=== PATIENT | female | born 1995 | race Caucasian/White ===

== ENCOUNTER → 2020-11-28 02:33 | Outpatient (CLI) | payer OTHER, SELFPAY ==
[2020-11-28 19:44] LABS: SARS-CoV-2 RNA PCR Negative
== END ==
PROVIDERS: PCP Family Medicine; Visit Provider Internal Medicine Critical Care Medicine
DX: Z01.812 Encounter for preprocedural laboratory examination (principal); Z20.822 Contact with and (suspected) exposure to COVID-19
CPT/HCPCS: C9803; U0003; U0005

== ENCOUNTER 2020-12-01 09:04 | Outpatient (CLI) | payer OTHER, SELFPAY ==
--- NOTE | 2020-12-16 18:14 | WPDSLEEPSTUD ---
Sleep Study Date of Study: 12/01/20 Ordering Provider: Lisa Russell MD Interpreting Physician: Lisa Russell MD Sleep Study Type: Polysomnogram Height: 1.6 m Weight: 59.8 kg Body Mass Index: 23.3 Neck Circumference (inches): 14 [place]: 18 Reason for Sleep Study Hypersomnolence Sleep History Dorys Walter is a 25 years old female who has had problems with sleep since 2013 while in college. She has increased difficulty falling asleep and staying asleep. She wakes up feeling exhausted as if she never slept. This is extremely severe. She has a difficult time falling asleep, she wakes up throughout the night and has excessive daytime sleepiness. She does not awaken from sleep feeling short of breath. She rarely awakens at night with heartburn, belching or coughing. She frequently snores michel often wakes with a dry mouth. Her snoring is never loud enough that others complain about it. She constantly has trouble sleeping with a cold. She does not wake up gasping for breath at night. She rarely has breathing problems at night observed by others. She constantly sweats excessively at night. She rarely notices her heart pounding or beating irregularly at night. She constantly falls asleep during the day, constantly involuntarily and constantly while driving. She rarely falls asleep while exerting physical effort. She does not have loss of muscle tone was strong emotion. She constantly has daytime difficulties due to her excessive sleepiness. She does not feel paralyzed on waking or falling asleep. She constantly has vivid dreamlike scenes upon awakening or falling asleep. She constantly is afraid to go to sleep. She constantly has nightmares, she could she always remembers her dreams. She constantly has racing thoughts, feelings of sadness, depression and anxiety. She rarely has muscular tension. She occasionally notices parts of her body jerking and she occasionally kicks at night. She does not have crawling or aching feelings in her legs. She occasionally has leg pain at night. She does not have morning jaw pain. She constantly grinds her teeth during sleep. She frequently has bothered by pain during the day and is awakened by pain at night. She constantly wakes up feeling stiff in the morning with sore or achy muscles and pain in the neck and spine. She has fatigue, memory problems, bowel disturbances headaches and sexual problems. SHe has back pain due to scoliosis, and this impacts her sleep quality. she has seasonal allergies, gastroesophageal reflux disease and takes Tums often. She had a negative home sleep test. She reports that she was awake for much of the test. Normal bedtime is 9-10 p.m. taking 1 or 2 hours to fall asleep typically waking 3 or 4 times at night. When she wakes during the night she stays awake for 1-2 hours. She will stretch, go get water, go to the bathroom and then a lie in bed trying to return to sleep. She wakes the morning at 6:00 a.m.. On the weekends, she goes to bed between 9:00 p.m. and 10:30 p.m. and wakes between 7 and 8:00 a.m.. She denies taking naps in the afternoon or evening. A short nap is not refreshing. She is usually drowsy in the morning for 3 hours or longer. Habits: Never smoked tobacco. No caffeine, alcohol or recreational drugs. [facility] Past Medical History Medical History (Updated 12/16/20 @ 18:20 by Lisa Russell MD) Allergic rhinitis Anxiety Depression H/O scoliosis Lumbar radiculopathy Migraine Mixed irritable bowel syndrome (08/25/17) Surgical History Surgical History History of repair of ACL Family History Family History Mother Patient's mother is in good health Father Patient's father is in good health Sibling Patient's sister is in good health Other Diabetes mellitus Family history of alcoholism Family history of cardiovascular
[2020-12-16 18:26] VITALS: BMI 23.3
== END 2020-12-01 09:05 | disposition home or self-care (01) ==
LOC: ANHCSM 09:05
PROVIDERS: PCP Family Medicine; Visit Provider Internal Medicine Critical Care Medicine
DX: G47.10 Hypersomnia, unspecified (principal)
CPT/HCPCS: 95810

== ENCOUNTER 2022-04-12 12:12 | Day surgery (SDC) | payer OTHER, SELFPAY ==
[2022-02-28 08:12] VITALS: BMI 23.9
[2022-03-30 12:31] VITALS: BMI 23.0
--- NOTE | 2022-04-12 12:37 | WPDANESEPPF ---
Anes - Initial Pre Proc Eval Procedure: Operation Date: 04/12/22 13:30 Proposed Procedures p Esophagogastroduodenoscopy - Sukhwinder Anderson MD s Diagnostic Colonoscopy - Sukhwinder nAderson MD Date/Time: 04/12/22 12:37 Surgeon: Sukhwinder Anderson MD Pre Op Diagnosis: Gerd, Melena, Abdominal Pain, Constipation Patient Data Age: 27 Gender: F Height: 1.6 m Weight: 59 kg Allergies Allergy/AdvReac Type Severity Reaction Status Date / Time No Known Allergies Allergy Verified 04/12/22 12:28 Home Medications Medication Instructions Recorded Confirmed Type montelukast 10 mg tablet 10 mg PO DAILY #30 tabs 05/06/21 04/12/22 Rx (Singulair) fexofenadine-pseudoephedrine ER 1 tablet PO DAILY 05/13/21 04/12/22 History 180 mg-240 mg tablet,ext.release 24 hr (Tatiana-D 24 Hour) venlafaxine 150 mg 150 mg PO QAM #90 caps 10/11/21 04/12/22 Rx capsule,extended release 24 hr omeprazole 20 mg capsule,delayed 20 mg PO DAILY #30 caps 02/10/22 04/12/22 Rx release sucralfate 1 gram tablet (Carafate) 1 g PO ACHS #120 tabs 02/10/22 04/12/22 Rx trazodone 100 mg tablet 100 mg PO QHS PRN sleep #30 tabs 02/23/22 04/12/22 Rx Patient hx anesthesia problems: none Family hx anesthesia problems: none Results Review: All pre-operative results and documents have been reviewed as part of the pre-operative evaluation. [facility] Past Medical History Medical History Allergic rhinitis Anxiety Depression H/O scoliosis Lumbar radiculopathy Migraine Mixed irritable bowel syndrome (08/25/17) Surgical History Surgical History History of repair of ACL Family History Family History Mother Patient's mother is in good health ADHD Depression Father Patient's father is in good health Anxiety OCD (obsessive compulsive disorder) Sibling Patient's sister is in good health Bipolar 1 disorder ADHD Depression Other Diabetes mellitus Family history of alcoholism Family history of cardiovascular disease Hypertension Social History Social History Smoking status: Never smoker Second hand tobacco smoke exposure: No Alcohol intake: never Substance use: never Substance use type: does not use Living arrangements: with family Gender identity (if verbalized by the patient): Female Spiritual care concerns: No Anes - Eval Final PreProcedure Day of Procedure 04/12/22 12:37 Patient weight: normal Heart: regular rate and rhythm Lungs: clear to auscultation Airway: Mallampati scale class II Neurological: alert and oriented Last oral intake: >/= 8 hours ASA classification: II Emergent: no Anesthetic plan: proceed Anesthesia type and monitoring: general GIVS and standard monitoring Results Review: All pre-operative results and documents have been reviewed as part of the pre-operative evaluation. Informed Consent: The patient's anesthetic plan and its attendant risks and benefits were discussed with the patient/family/POA. Questions were solicited and answers provided to the satisfaction of the patient/family/POA.
[2022-04-12 12:38] VITALS: BP 125/75; PULSE 89; RESP 20; TEMP 37.1; O2SAT 100
[2022-04-12] MEDS: LACTATED RINGERS 1,000 ML 150 ML IV CONT (12:42)
[2022-04-12 12:43] VITALS: BMI 22.2
--- NOTE | 2022-04-12 12:46 | PM.HPGS ---
History of Present Illness History of Present Illness Consent: Risks, benefits, and alternatives have been discussed and questions answered. Patient agrees to proceed with procedure. Chief complaint: Gerd, Melena, Abdominal Pain, Constipation Narrative: Dorys Walter is a 27 year old female with gerd on omeprazole, ibs-c on bentyl prn and abdominal pain, never had scopes Review of Systems Constitutional: Constitutional: Denies headache(s) and Denies weakness Eyes: Eyes: Denies blurry vision ENT: Reports Normal hearing present, Denies headache(s) and Denies neck pain Cardiovascular: Cardiovascular: Denies chest pain and Denies dyspnea Respiratory: Respiratory: Denies dyspnea Gastrointestinal: Gastrointestinal: Reports no additional gastrointestinal complaints Genitourinary: Genitourinary: Denies dysuria Musculoskeletal: Musculoskeletal: Denies neck pain Integumentary/Breasts: Skin/Breast: Denies dry skin Neurologic: Reports Normal hearing present, Denies headache(s) and Denies weakness Psychiatric: Psychiatric: Denies anxiety Endocrine: Endocrine: Denies change in body appearance Hematologic/Lymphatic: Hematologic/Lymphatic: Denies easy bleeding Allergic/Immunologic: Allergic/Immunologic: Denies urticaria PMFSH Past Medical History Medical History (Updated 04/12/22 @ 12:47 by Sukhwinder Anderson MD) Allergic rhinitis Anxiety Depression GERD (gastroesophageal reflux disease) H/O scoliosis Lumbar radiculopathy Migraine Mixed irritable bowel syndrome (08/25/17) Surgical History Surgical History History of repair of ACL Family History Family History Mother Patient's mother is in good health ADHD Depression Father Patient's father is in good health Anxiety OCD (obsessive compulsive disorder) Sibling Patient's sister is in good health Bipolar 1 disorder ADHD Depression Other Diabetes mellitus Family history of alcoholism Family history of cardiovascular disease Hypertension Social History Social History Smoking status: Never smoker Second hand tobacco smoke exposure: No Alcohol intake: never Substance use: never Substance use type: does not use Living arrangements: with family Gender identity (if verbalized by the patient): Female Spiritual care concerns: No Meds Home Medications and Allergies Home Medications Medication Instructions Recorded Confirmed Type montelukast 10 mg tablet 10 mg PO DAILY #30 tabs 05/06/21 04/12/22 Rx (Singulair) fexofenadine-pseudoephedrine ER 1 tablet PO DAILY 05/13/21 04/12/22 History 180 mg-240 mg tablet,ext.release 24 hr (Tatiana-D 24 Hour) venlafaxine 150 mg 150 mg PO QAM #90 caps 10/11/21 04/12/22 Rx capsule,extended release 24 hr omeprazole 20 mg capsule,delayed 20 mg PO DAILY #30 caps 02/10/22 04/12/22 Rx release sucralfate 1 gram tablet (Carafate) 1 g PO ACHS #120 tabs 02/10/22 04/12/22 Rx trazodone 100 mg tablet 100 mg PO QHS PRN sleep #30 tabs 02/23/22 04/12/22 Rx Allergies Allergy/AdvReac Type Severity Reaction Status Date / Time No Known Allergies Allergy Verified 04/12/22 12:28 Vital Signs Vital Signs - 24 hr 04/12/22 12:38 Temperature 98.7 F Pulse Rate 89 Respiratory Rate 20 Blood Pressure 125/75 Pulse Oximetry 100 Oxygen Delivery Room Air Exam Const: General: comfortable and no acute distress HENMT: General nose exam: Normal nares present Eyes: General: appearance normal, both eyes and all related structures Neck: Neck: no JVD Resp: Auscultation: clear to auscultation bilaterally Cardio: Rate: regular rate Rhythm: regular rhythm GI: Inspection: non-distended GI Palp: Yes Soft to palpation Skin: General skin exam: normal color Neuro: General: gait normal Speech:
[2022-04-12 13:17] VITALS: BP 111/75; PULSE 92; RESP 16; O2SAT 100
--- NOTE | 2022-04-12 13:19 | WPDANESPN ---
Anes - Prog Note Post-Op Date/Time: 04/12/22 13:19 Cardiovascular status: normal Respiratory status: normal Airway patency: baseline Mental status: baseline Post-Op hydration status: normal Vital Signs: Last Vital Signs Temp 37.1 C 04/12/22 12:38 Pulse 89 04/12/22 12:38 Resp 20 04/12/22 12:38 BP 125/75 04/12/22 12:38 Pulse Ox 100 04/12/22 12:38 O2 Del Method Room Air 04/12/22 12:38 Pain Score (VAS): 0 I/O: Intake & Output 04/11/22 04/12/22 04/12/22 23:59 07:59 15:59 Intake Total 400 Balance 400 Patient Feedback: Patient satisfied with anesthetic care.
[2022-04-12 13:27] VITALS: BP 111/75; PULSE 88; RESP 16; O2SAT 99
[2022-04-12 13:38] VITALS: BP 110/76; PULSE 82; RESP 16
== END 2022-04-12 13:48 | disposition home or self-care (01) ==
PROVIDERS: PCP Family Medicine; Visit Provider Internal Medicine Gastroenterology
PROC: 0DJ08ZZ Inspection of Upper Intestinal Tract, Via Natural or Artificial Opening Endoscopic (ICD-10-PCS; CPT 43235; principal; 2022-04-12 13:30)
PROC: 0DJD8ZZ Inspection of Lower Intestinal Tract, Via Natural or Artificial Opening Endoscopic (ICD-10-PCS; CPT 45378; 2022-04-12 13:30)
DX: K58.2 Mixed irritable bowel syndrome (principal)
CPT/HCPCS: 45378; 43239

== ENCOUNTER 2022-04-12 13:00 | Outpatient (NON) | payer OTHER, SELFPAY | END 2022-04-12 13:01 | disposition home or self-care (01) | LOC: ANHLAB 04-13 08:58 | PROVIDERS: PCP Family Medicine; Visit Provider Internal Medicine Gastroenterology | DX: K58.2 Mixed irritable bowel syndrome (principal) | CPT/HCPCS: 88305 ==

== ENCOUNTER 2025-07-03 08:32 | Outpatient (CLI) | payer BC, SELFPAY ==
--- NOTE | 2025-07-03 08:41 | ECG_ITS ---
Test Date: 2025-07-03 08:54:56 Measurements Intervals [place] Rate: 84 P: 46 IA: 143 QRS: 59 QRSD: 75 T: 3 QT: 354 QTc: 419 Interpretive Statements SINUS RHYTHM NONSPECIFIC T-WAVE ABNORMALITY No previous ECG available for comparison Electronically Signed On 07-03-2025 10:17:07 [employer] by Neto Villalobos D.O
== END 2025-07-03 08:33 | disposition home or self-care (01) ==
LOC: ANHCARD 08:36
PROVIDERS: PCP Student in an Organized Health Care Education/Training Program; Visit Provider Student in an Organized Health Care Education/Training Program
DX: R00.2 Palpitations (principal); R94.31 Abnormal electrocardiogram [ECG] [EKG]
CPT/HCPCS: 93005; 93242